=== PATIENT | male | born 1985 | race Two or more races ===

== ENCOUNTER 2017-03-07 18:29 | Emergency (ER) | payer SELFPAY ==
[~2017-03-07] VITALS: Ht 185.4 cm; Wt 86.2 kg
[2017-03-08 00:41] VITALS: BP 129/76
== END 2017-03-08 00:59 | disposition home or self-care (01) ==
LOC: ER 18:31
DX: S60.512A Abrasion of left hand, initial encounter (principal); S60.812A Abrasion of left wrist, initial encounter; Z90.49 Acquired absence of other specified parts of digestive tract; V43.52XA Car driver injured in collision with other type car in traffic accident, initial encounter; Y93.89 Activity, other specified; Y92.89 Other specified places as the place of occurrence of the external cause; Y99.8 Other external cause status
CPT/HCPCS: 71010; 72125; 73110